=== PATIENT | female | born 1995 | race Caucasian/White ===

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

== ENCOUNTER → 2018-02-27 | Outpatient (CLI) | payer BC ==
[~2018-02-27] MED LIST: ACNE MEDICATION; CEPHALEXIN500 M1 PO; MACROBID 1100 MG/CAP PO; NAPROXEN 3375 MG/TAB PO
== END ==
LOC: COL.RAD 10:38
DX: D27.1 Benign neoplasm of left ovary (principal)
CPT/HCPCS: Q9967

== ENCOUNTER 2018-03-30 07:28 | Day surgery (SDC) | payer BC ==
[~2018-03-30] VITALS: Ht 162.6 cm; Wt 51.5 kg
[2018-03-30] VITALS (11 sets, daily range): BP systolic 97–137; BP diastolic 37–71; PULSE 52–63; TEMP 97.5–98.3
[2018-03-30] MEDS ORDERED: ALDACTONE 100M100 MG PO (08:14)
[2018-03-30] MEDS ORDERED: RETIN-A CR0.05 20GM TP (08:14)
[2018-03-30] MEDS ORDERED: FLOVENT DI50 MCG/Act IH (08:15)
[2018-03-30] MEDS ORDERED: DAPSONE TOP (08:16)
[2018-03-30] MEDS ORDERED: PERCOCET 325 MG1 TA2 PO (11:26)
[2018-03-30] MEDS ORDERED: IBU800 M1 PO (11:26)
== END 2018-03-30 21:00 | disposition home or self-care (01) ==
LOC: SDCO 07:28 → OB 17:20 → SDCO 21:00
DX: N83.202 Unspecified ovarian cyst, left side (principal); N94.89 Other specified conditions associated with female genital organs and menstrual cycle; F41.9 Anxiety disorder, unspecified; D64.9 Anemia, unspecified; Z91.048 Other nonmedicinal substance allergy status; Z81.8 Family history of other mental and behavioral disorders
CPT/HCPCS: OP; J1100; J1170; J1885; J2270; J2405; J2704; J2710; J3010; J7120